=== PATIENT | female | born 1985 | race Caucasian/White ===

== ENCOUNTER → 2025-04-11 10:15 | Outpatient (REF) | payer BC, SELFPAY ==
[2025-04-11 11:09] LABS: Hematocrit 42.0 % (37.0-47.0); Hemoglobin 13.9 g/dL (12.0-16.0); Mean Corp Hgb Conc. 33.1 g/dL (33.0-37.0); Mean Corpuscular Volume 85.5 fL (81.0-99.0); Platelet Count 293 10^3/uL (130-400); Red Cell Dist. Width 11.9 % (11.5-14.5)
[2025-04-11 11:23] LABS: Nucleated Red Blood Cells % 0 %
[2025-04-11 12:56] LABS: Glycohemoglobin (HgbA1c) 5.4 % (4.0-5.6)
[2025-04-11 13:11] LABS: ALT (SGPT) 18 U/L (0-35); AST (SGOT) 22 U/L (14-36); Albumin 4.7 g/dl (3.5-5.0); Alkaline Phosphatase 41 U/L (38-126); Blood Urea Nitrogen 17 mg/dl (7-17); Calcium 9.3 mg/dl (8.4-10.2); Carbon Dioxide 29 mmol/L (22-30); Chloride 103 mmol/L (98-107); Glucose 89 mg/dl (70-99); HDL Cholesterol 69 mg/dl; LDL Cholesterol, Calculated 103 mg/dl; Potassium 4.4 mmol/L (3.5-5.1); Sodium 139 mmol/L (135-145); Total Protein 7.1 g/dl (6.3-8.2); Very Low Density Lipoprotein 12 mg/dl (0-30); eGFR > 60.00
[2025-04-11 13:20] LABS: Vitamin D, 25-OH*** 53.9 ng/mL (30-80)
[2025-04-11 13:37] LABS: Ferritin 21.2 ng/ml (6.24-137)
== END ==
LOC: REG 10:15
PROVIDERS: ATTENDING PHYSICIAN Dermatology
DX: D89.89 Other specified disorders involving the immune mechanism, not elsewhere classified (principal); L30.8 Other specified dermatitis; E55.9 Vitamin D deficiency, unspecified
CPT/HCPCS: 36415; 80053; 80061; 82306; 82728; 83036; 84439; 84443; 85025; 86618